=== PATIENT | female | born 1955 | race African-American/Black ===

== ENCOUNTER 2016-03-17 22:57 | Inpatient (IN) | payer MEDICAID, OTHER ==
[~2016-03-17] VITALS: Ht 152.4 cm; Wt 64.8 kg
[~2016-03-17 22:57] MED LIST: ALB2T PO; CARI250T8 PO; DIPH25CA66 PO; FOLI5CAP OR; FURO20TA3 PO; GABA-494 PO; HYDR-1421 OR; Metronidazole PO; POTA10SO11 GT
[2016-03-17] MEDS ORDERED: methylPREDNISolone SOD SUCC 125 MG/2 ML VL ONE (23:21)
[2016-03-17] MEDS ORDERED: ALBUTEROL SULF 2.5 MG/0.5ML(0.5%) NEB SOLN NEB ONE (23:30)
[2016-03-17] MEDS ORDERED: methylPREDNISolone SOD SUCC 125 MG/2 ML VL IV ONE (23:30)
[2016-03-17] MEDS ORDERED: IPRATROPIUM BROM 0.5 MG/2.5ML INH SOL NEB ONE (23:30)
[2016-03-17] MEDS ORDERED: FAMOTIDINE (10MG/ML) 2ML VL IV ONE (23:45)
[2016-03-17] MEDS ORDERED: SODIUM CHLORIDE 0.9% 1,000 ML IV ONE (23:45)
[2016-03-18] VITALS (9 sets, daily range): BP systolic 122–146; BP diastolic 65–91
[2016-03-18 00:13] LABS: DEFINITIVE VIEW TRANSMISSION; Hematocrit 40.2 % (36.0-46.0); Hemoglobin 12.8 g/dL (12.2-16.2); Mean Corpuscular Hemoglobin 30.4 pg (28.0-32.0); Mean Corpuscular Hgb Conc. 31.7 g/dL (32.0-36.0); Mean Corpuscular Volume 95.9 fL (80.0-100.0); Mean Platelet Volume 8.2 fL (7.4-10.4); Platelet Count (auto) 402 10^3/uL (140-450); Red Cell Distribution Width 13.1 % (11.6-16.0); SUSPECT VIEW TRANSMISSION; White Blood Cell 22.6 10^3/uL (4.4-10.8)
[2016-03-18 00:15] LABS: Metamyelocytes % 0; Myelocytes % 0; Promyelocytes % 0; Reactive Lymphocytes 0
[2016-03-18] MEDS ORDERED: MAGNESIUM SULFATE 1GM/100ML 100 ML IV ONE (00:30)
[2016-03-18] MEDS ORDERED: LORazepam 2MG/ML-1ML VIAL IV ONE ×2 (01:00)
[2016-03-18 01:04] LABS: Albumin 4.2 g/dL (3.4-5.0); BUN/Creatinine Ratio 13.6; Bilirubin, Total 0.7 mg/dL (0.2-1.0); Calcium 8.9 mg/dL (8.5-10.1); Potassium 3.9 mmol/L (3.5-5.1); Total Protein 8.3 g/dL (6.4-8.2)
[2016-03-18 01:05] LABS: Magnesium 2.5 mg/dL (1.6-2.6)
[2016-03-18] MEDS ORDERED: HYDROmorphone HCL 2 MG/ML VL IV ONE (01:30)
[2016-03-18] MEDS ORDERED: cefTRIAXone 1GM/50ML D5W 50 ML IV ONE (02:15)
[2016-03-18] MEDS ORDERED: NITROGLYCERIN 0.4 MG SL TAB SL PRN (04:00)
[2016-03-18] MEDS ORDERED: VANCOMYCIN 1GM/250ML D5W 250 ML IV ONE (04:00)
[2016-03-18] MEDS ORDERED: LACTULOSE 20Gm/30ML SOLN PO PRN (04:00)
[2016-03-18] MEDS ORDERED: MORPHINE SULF INJ 2 MG/ML SYRINGE 1ML IV PRN (04:00)
[2016-03-18] MEDS ORDERED: SODIUM CHLORIDE 0.9% 1,000 ML IV ONE ×2 (04:00)
[2016-03-18] MEDS ORDERED: VANCOMYCIN PER PHARMACY 0 MG IV SCH (04:00)
[2016-03-18 04:03] LABS: Anisocytosis Slight; Platelet Estimate Adequate
[2016-03-18] MEDS: ALBUTEROL SULF 2.5 MG/0.5ML(0.5%) NEB SOLN NEB SCH ×5 (05:25→22:41)
[2016-03-18] MEDS: IPRATROPIUM BROM 0.5 MG/2.5ML INH SOL NEB SCH ×5 (05:25→22:41)
[2016-03-18] MEDS: SODIUM CHLORIDE 0.9% 1,000 ML IV SCH ×2 (05:35→16:50)
[2016-03-18] MEDS: HYDROmorphone HCL 2 MG/ML VL IV PRN ×2 (07:52→12:12)
[2016-03-18] MEDS: ONDANSETRON HCL 4 MG/2 ML VIAL IV PRN ×2 (07:53→12:12)
[2016-03-18] MEDS: cefTRIAXone 1GM/50ML D5W 50 ML IV SCH (08:56)
[2016-03-18] MEDS ORDERED: ENOXAPARIN SOD 30 MG/0.3 ML SYRINGE SC SCH (10:00)
[2016-03-18] MEDS ORDERED: methylPREDNISolone SOD SUCC 125 MG/2 ML VL IV SCH (10:00)
[2016-03-18] MEDS: ENOXAPARIN SOD 40 MG/0.4 ML SYRINGE SC SCH (10:10)
[2016-03-18] MEDS ORDERED: INFLUENZA QUAD 2016-2017 0.5 ML SYRG IM ONE (15:15)
[2016-03-18] MEDS: AZITHROMYCIN 500MG/D5W 250ML 250 ML IV SCH (15:26)
[2016-03-18] MEDS: HYDROcodone-ACET 5/325MG TAB PO PRN ×2 (15:45→20:05)
[2016-03-18] MEDS ORDERED: VANCOMYCIN 1GM/250ML D5W 250 ML IV SCH (17:00)
[2016-03-18] MEDS: methylPREDNISolone SOD SUCC 40 MG/ML VL IV SCH ×2 (18:02→23:48)
[2016-03-18 20:44] LABS: Urine Bilirubin Negative (Negative); Urine Color Yellow (Yellow); Urine Glucose Normal (Normal); Urine Ketone Negative (Negative); Urine Nitrite Negative (Negative); Urine RBC 20 /hpf (0 - 4); Urine Squamous Epithelial Cell FEW /hpf (<5); Urine Urobilinogen Normal (Negative); Urine pH 5.5 (5.0-8.0)
[2016-03-18 20:46] LABS: Urine Blood 2+ /uL (Negative)
[2016-03-18] MEDS ORDERED: methylPREDNISolone SOD SUCC 40 MG/ML VL IV SCH (22:00)
[2016-03-19] MEDS: HYDROcodone-ACET 5/325MG TAB PO PRN ×5 (00:17→21:03)
[2016-03-19 04:46] VITALS: BP 113/66
[2016-03-19 05:52] LABS: Basophils # (auto) 0.1 uL; Basophils % (auto) 0.8 % (0.0-2.0); Eosinophils # (auto) 0 uL; Eosinophils % (auto) 0.1 % (0.0-7.0); Hematocrit 30.8 % (36.0-46.0); Lymphocytes # (auto) 1.7 uL; Lymphocytes % (auto) 16.8 % (10.0-50.0); Mean Corpuscular Hemoglobin 30.4 pg (28.0-32.0); Mean Corpuscular Hgb Conc. 32.5 g/dL (32.0-36.0); Mean Corpuscular Volume 93.7 fL (80.0-100.0); Mean Platelet Volume 8.2 fL (7.4-10.4); Monocytes # (auto) 0.4 uL; Monocytes % (auto) 4.4 % (0.0-12.0); Neutrophils # (auto) 7.7 uL; Neutrophils % (auto) 77.9 % (37.0-80.0); Platelet Count (auto) 361 10^3/uL (140-450); Red Cell Distribution Width 13.4 % (11.6-16.0); SUSPECT VIEW TRANSMISSION; White Blood Cell 9.8 10^3/uL (4.4-10.8)
[2016-03-19] MEDS: ALBUTEROL SULF 2.5 MG/0.5ML(0.5%) NEB SOLN NEB SCH ×5 (05:57→22:14)
[2016-03-19] MEDS: IPRATROPIUM BROM 0.5 MG/2.5ML INH SOL NEB SCH ×5 (05:58→22:14)
[2016-03-19 06:03] LABS: Potassium 4.3 mmol/L (3.5-5.1)
[2016-03-19] MEDS: methylPREDNISolone SOD SUCC 40 MG/ML VL IV SCH ×4 (06:03→23:23)
[2016-03-19 06:05] LABS: INR 1.04 (0.9-1.15); Prothrombin Time 10.7 sec (9.37-12.3)
[2016-03-19 06:09] LABS: Albumin 3.4 g/dL (3.4-5.0); BUN/Creatinine Ratio 16.4; Calcium 8.3 mg/dL (8.5-10.1)
[2016-03-19 06:21] LABS: Bilirubin, Total 0.2 mg/dL (0.2-1.0); Total Protein 6.5 g/dL (6.4-8.2)
[2016-03-19 07:58] VITALS: BP 131/73
[2016-03-19] MEDS: SODIUM CHLORIDE 0.9% 1,000 ML IV SCH ×2 (08:55→21:04)
[2016-03-19] MEDS: cefTRIAXone 1GM/50ML D5W 50 ML IV SCH (08:55)
[2016-03-19] MEDS: AZITHROMYCIN 500MG/D5W 250ML 250 ML IV SCH (09:24)
[2016-03-19] MEDS: ENOXAPARIN SOD 40 MG/0.4 ML SYRINGE SC SCH (09:24)
[2016-03-19 12:00] VITALS: BP 137/81
[2016-03-19 15:49] VITALS: BP 131/87
[2016-03-19 20:00] VITALS: BP 133/93
[2016-03-20] VITALS (7 sets, daily range): BP systolic 131–153; BP diastolic 77–97
[2016-03-20] MEDS: IPRATROPIUM BROM 0.5 MG/2.5ML INH SOL NEB SCH ×6 (02:15→22:25)
[2016-03-20] MEDS: ALBUTEROL SULF 2.5 MG/0.5ML(0.5%) NEB SOLN NEB SCH ×6 (02:15→22:25)
[2016-03-20] MEDS: HYDROcodone-ACET 5/325MG TAB PO PRN ×4 (02:23→20:01)
[2016-03-20 05:15] LABS: Basophils # (auto) 0 uL; Basophils % (auto) 0.4 % (0.0-2.0); Eosinophils # (auto) 0 uL; Eosinophils % (auto) 0.1 % (0.0-7.0); Hematocrit 31.8 % (36.0-46.0); Hemoglobin 10.3 g/dL (12.2-16.2); Lymphocytes # (auto) 1.5 uL; Lymphocytes % (auto) 14.6 % (10.0-50.0); Mean Corpuscular Hemoglobin 30.5 pg (28.0-32.0); Mean Corpuscular Hgb Conc. 32.5 g/dL (32.0-36.0); Mean Corpuscular Volume 93.8 fL (80.0-100.0); Mean Platelet Volume 8.2 fL (7.4-10.4); Monocytes # (auto) 0.8 uL; Monocytes % (auto) 8.1 % (0.0-12.0); Neutrophils # (auto) 7.8 uL; Neutrophils % (auto) 76.8 % (37.0-80.0); Platelet Count (auto) 352 10^3/uL (140-450); Red Cell Distribution Width 13.5 % (11.6-16.0); SUSPECT VIEW TRANSMISSION; White Blood Cell 10.2 10^3/uL (4.4-10.8)
[2016-03-20 05:32] LABS: INR 1.08 (0.9-1.15); Prothrombin Time 11.1 sec (9.37-12.3)
[2016-03-20] MEDS: methylPREDNISolone SOD SUCC 40 MG/ML VL IV SCH ×3 (05:33→17:14)
[2016-03-20 05:38] LABS: Calcium 8.6 mg/dL (8.5-10.1); Potassium 4.1 mmol/L (3.5-5.1)
[2016-03-20 05:47] LABS: BUN/Creatinine Ratio 17.7; Magnesium 2.6 mg/dL (1.6-2.6)
[2016-03-20 08:05] LABS: Platelet Estimate Adequate; RBC Morphology Normal
[2016-03-20] MEDS: cefTRIAXone 1GM/50ML D5W 50 ML IV SCH (08:38)
[2016-03-20] MEDS: SODIUM CHLORIDE 0.9% 1,000 ML IV SCH ×2 (09:34→12:10)
[2016-03-20] MEDS: AZITHROMYCIN 500MG/D5W 250ML 250 ML IV SCH (09:34)
[2016-03-20] MEDS: ENOXAPARIN SOD 40 MG/0.4 ML SYRINGE SC SCH (09:34)
[2016-03-20] MEDS: HYDROmorphone HCL 2 MG/ML VL IV PRN ×3 (10:04→22:04)
[2016-03-20] MEDS ORDERED: GABAPENTIN 300 MG CAP PO ONE (11:30)
[2016-03-20] MEDS: GABAPENTIN 300 MG CAP PO SCH ×2 (14:13→22:03)
[2016-03-21] MEDS: methylPREDNISolone SOD SUCC 40 MG/ML VL IV SCH ×4 (00:35→17:32)
[2016-03-21] MEDS: ALBUTEROL SULF 2.5 MG/0.5ML(0.5%) NEB SOLN NEB SCH ×6 (02:16→21:18)
[2016-03-21] MEDS: IPRATROPIUM BROM 0.5 MG/2.5ML INH SOL NEB SCH ×6 (02:16→21:18)
[2016-03-21] MEDS: HYDROmorphone HCL 2 MG/ML VL IV PRN ×5 (02:40→23:00)
[2016-03-21 06:03] VITALS: BP 136/80
[2016-03-21] MEDS: GABAPENTIN 300 MG CAP PO SCH ×3 (06:07→21:59)
[2016-03-21 07:03] LABS: Hematocrit 32.3 % (36.0-46.0); Hemoglobin 10.5 g/dL (12.2-16.2); Mean Corpuscular Hemoglobin 30.4 pg (28.0-32.0); Mean Corpuscular Hgb Conc. 32.4 g/dL (32.0-36.0); Mean Corpuscular Volume 93.9 fL (80.0-100.0); Mean Platelet Volume 8.3 fL (7.4-10.4); Platelet Count (auto) 371 10^3/uL (140-450); SUSPECT VIEW TRANSMISSION; White Blood Cell 11.4 10^3/uL (4.4-10.8)
[2016-03-21 07:16] LABS: Metamyelocytes % 0; Myelocytes % 0; Promyelocytes % 0; Reactive Lymphocytes 0
[2016-03-21 07:22] LABS: Albumin 3.6 g/dL (3.4-5.0); BUN/Creatinine Ratio 18.2; Bilirubin, Total 0.3 mg/dL (0.2-1.0); Calcium 8.5 mg/dL (8.5-10.1); Potassium 3.9 mmol/L (3.5-5.1); Total Protein 6.5 g/dL (6.4-8.2)
[2016-03-21 07:36] LABS: Platelet Estimate Adequate
[2016-03-21 07:56] VITALS: BP 129/85
[2016-03-21] MEDS: cefTRIAXone 1GM/50ML D5W 50 ML IV SCH (09:19)
[2016-03-21] MEDS ORDERED: ALBUTEROL SULF 2.5 MG/0.5ML(0.5%) NEB SOLN NEB PRN (09:30)
[2016-03-21] MEDS ORDERED: IPRATROPIUM BROM 0.5 MG/2.5ML INH SOL NEB PRN (09:30)
[2016-03-21] MEDS: AZITHROMYCIN 500MG/D5W 250ML 250 ML IV SCH (10:10)
[2016-03-21] MEDS: ENOXAPARIN SOD 40 MG/0.4 ML SYRINGE SC SCH (10:10)
[2016-03-21] MEDS: SODIUM CHLORIDE 0.9% 1,000 ML IV SCH ×2 (11:51→22:00)
[2016-03-21 13:46] VITALS: BP 120/70
[2016-03-21 17:06] VITALS: BP 132/90
[2016-03-21 22:00] VITALS: BP 148/92
[2016-03-22] MEDS: methylPREDNISolone SOD SUCC 40 MG/ML VL IV SCH ×4 (00:18→17:53)
[2016-03-22] MEDS: IPRATROPIUM BROM 0.5 MG/2.5ML INH SOL NEB SCH ×6 (02:19→22:15)
[2016-03-22] MEDS: ALBUTEROL SULF 2.5 MG/0.5ML(0.5%) NEB SOLN NEB SCH ×6 (02:19→22:15)
[2016-03-22] MEDS: HYDROmorphone HCL 2 MG/ML VL IV PRN ×5 (03:09→20:03)
[2016-03-22 05:00] VITALS: BP 153/103
[2016-03-22 05:23] LABS: Hematocrit 33.5 % (36.0-46.0); Hemoglobin 10.7 g/dL (12.2-16.2); Mean Corpuscular Hemoglobin 30.2 pg (28.0-32.0); Mean Corpuscular Hgb Conc. 31.9 g/dL (32.0-36.0); Mean Corpuscular Volume 94.7 fL (80.0-100.0); Mean Platelet Volume 8.3 fL (7.4-10.4); Platelet Count (auto) 352 10^3/uL (140-450); Red Cell Distribution Width 13.2 % (11.6-16.0); White Blood Cell 12.4 10^3/uL (4.4-10.8)
[2016-03-22] MEDS: GABAPENTIN 300 MG CAP PO SCH ×3 (05:28→21:26)
[2016-03-22 05:29] LABS: Metamyelocytes % 0; Myelocytes % 0; Promyelocytes % 0; Reactive Lymphocytes 0
[2016-03-22 05:38] LABS: Potassium 4.1 mmol/L (3.5-5.1)
[2016-03-22 05:43] LABS: Albumin 3.3 g/dL (3.4-5.0); BUN/Creatinine Ratio 15.2; Calcium 8.3 mg/dL (8.5-10.1)
[2016-03-22 05:51] LABS: Bilirubin, Total 0.4 mg/dL (0.2-1.0); Total Protein 6.5 g/dL (6.4-8.2)
[2016-03-22 06:14] LABS: Hypersegmented Neutrophils Present
[2016-03-22 06:15] LABS: Large Platelets FEW; Platelet Clumps FEW; Platelet Estimate Adequa
[2016-03-22 06:16] LABS: Schistocytes FEW; Stomatocytes Few
[2016-03-22] MEDS ORDERED: cloNIDine HCL 0.1 MG TAB PO PRN (08:45)
[2016-03-22 09:00] VITALS: BP 147/87
[2016-03-22] MEDS ORDERED: DEXTROSE (50%) 50ML SYRG IV PRN (09:00)
[2016-03-22] MEDS: cefTRIAXone 1GM/50ML D5W 50 ML IV SCH (09:04)
[2016-03-22] MEDS: ENOXAPARIN SOD 40 MG/0.4 ML SYRINGE SC SCH (09:49)
[2016-03-22] MEDS: AZITHROMYCIN 500MG/D5W 250ML 250 ML IV SCH (09:49)
[2016-03-22] MEDS: ACCU-CHEK COMFORT CURVE STRIP VI SCH ×3 (11:30→21:26)
[2016-03-22] MEDS: InsuLIN REG 1unit/0.01ml Soln (100units/ml) SC SCH ×3 (11:34→22:10)
[2016-03-22 13:00] VITALS: BP 119/77
[2016-03-22] MEDS: BOOST PLUS 8 ounce PO SCH ×2 (13:49→18:27)
[2016-03-22] MEDS: SODIUM CHLORIDE 0.9% 1,000 ML IV SCH (14:31)
[2016-03-22 17:00] VITALS: BP 147/104
[2016-03-22 22:02] VITALS: BP 124/71
[2016-03-23] MEDS: methylPREDNISolone SOD SUCC 40 MG/ML VL IV SCH ×3 (00:09→12:23)
[2016-03-23] MEDS: HYDROmorphone HCL 2 MG/ML VL IV PRN ×4 (00:10→12:14)
[2016-03-23] MEDS: IPRATROPIUM BROM 0.5 MG/2.5ML INH SOL NEB SCH ×3 (02:49→10:18)
[2016-03-23] MEDS: ALBUTEROL SULF 2.5 MG/0.5ML(0.5%) NEB SOLN NEB SCH ×3 (02:49→10:18)
[2016-03-23] MEDS: SODIUM CHLORIDE 0.9% 1,000 ML IV SCH (03:34)
[2016-03-23 05:05] VITALS: BP 158/89
[2016-03-23] MEDS: GABAPENTIN 300 MG CAP PO SCH (05:44)
[2016-03-23 06:19] LABS: Hematocrit 34.8 % (36.0-46.0); Hemoglobin 11.2 g/dL (12.2-16.2); Mean Corpuscular Hgb Conc. 32.1 g/dL (32.0-36.0); Mean Corpuscular Volume 93.5 fL (80.0-100.0); Mean Platelet Volume 8.5 fL (7.4-10.4); Platelet Count (auto) 368 10^3/uL (140-450); Red Cell Distribution Width 13.6 % (11.6-16.0); White Blood Cell 14.8 10^3/uL (4.4-10.8)
[2016-03-23] MEDS: ACCU-CHEK COMFORT CURVE STRIP VI SCH ×2 (06:28→11:20)
[2016-03-23 06:34] LABS: Metamyelocytes % 0; Myelocytes % 0; Promyelocytes % 0; Reactive Lymphocytes 0
[2016-03-23] MEDS: InsuLIN REG 1unit/0.01ml Soln (100units/ml) SC SCH ×2 (06:50→11:24)
[2016-03-23 07:00] LABS: Hypersegmented Neutrophils Present; Platelet Estimate Adequate; Stomatocytes Few
[2016-03-23 07:03] LABS: Albumin 3.6 g/dL (3.4-5.0); BUN/Creatinine Ratio 17.2; Bilirubin, Total 0.5 mg/dL (0.2-1.0); Calcium 8.7 mg/dL (8.5-10.1); Potassium 3.9 mmol/L (3.5-5.1); Total Protein 6.6 g/dL (6.4-8.2)
[2016-03-23] MEDS: BOOST PLUS 8 ounce PO SCH ×2 (08:21→12:14)
[2016-03-23] MEDS: cefTRIAXone 1GM/50ML D5W 50 ML IV SCH (08:35)
[2016-03-23 09:00] VITALS: BP 138/90
[2016-03-23] MEDS: ENOXAPARIN SOD 40 MG/0.4 ML SYRINGE SC SCH (09:42)
[2016-03-23] MEDS: AZITHROMYCIN 500MG/D5W 250ML 250 ML IV SCH (09:43)
[2016-03-23] MEDS ORDERED: FUROSEMIDE 20 MG/2 ML VIAL IV ONE (10:45)
[2016-03-23] MEDS ORDERED: POTASSIUM CHL 20 Meq TABLET PO ONE (10:45)
[2016-03-23 11:35] VITALS: BP 138/90
== END 2016-03-23 13:36 | disposition home or self-care (01) | DRG 720 ==
LOC: ER 22:57 → EDBD 22:57 → TELE 22:58 → EDUNIT# 22:58 → DOU IN ICU 03-18 13:45 → TELE-CENTR 03-20 20:38
PROVIDERS: ADMIT Family Medicine; ATTEND Family Medicine
PROC: 5A09357 Assistance with Respiratory Ventilation, Less than 24 Consecutive Hours, Continuous Positive Airway Pressure (ICD-10-PCS; principal; 2016-03-18)
DX: A41.9 Sepsis, unspecified organism (principal); D57.00 Hb-SS disease with crisis, unspecified; J96.10 Chronic respiratory failure, unspecified whether with hypoxia or hypercapnia; J18.9 Pneumonia, unspecified organism; I11.0 Hypertensive heart disease with heart failure; J44.0 Chronic obstructive pulmonary disease with (acute) lower respiratory infection; I50.32 Chronic diastolic (congestive) heart failure; J45.901 Unspecified asthma with (acute) exacerbation; J44.1 Chronic obstructive pulmonary disease with (acute) exacerbation; J20.9 Acute bronchitis, unspecified; N39.0 Urinary tract infection, site not specified; R65.20 Severe sepsis without septic shock; Z23 Encounter for immunization; Z86.711 Personal history of pulmonary embolism
CPT/HCPCS: 36415; 36600; 71010; 80048; 80053; 81001; 82805; 82962; 83036; 83605; 83735; 85007; 85025; 85027; 85045; 85049; 85610; 87040; 87070; 87081; 87086; 87400; 87880; 93005; 93306; 94640; 94660; 96361; 96365; 96366; 96367; 96375; J0696; J1815; J2405; J3490

== ENCOUNTER 2016-07-22 01:45 | Emergency (ER) | payer MEDICAID ==
[~2016-07-22] VITALS: Ht 152.4 cm; Wt 68.0 kg
[2016-07-22 02:23] VITALS: BP 160/92
[2016-07-22] MEDS ORDERED: LIDOCAINE 1% HCL (LOCAL ANESTH.) INJ 20ML MDV ONE (02:58)
[2016-07-22] MEDS ORDERED: LIDOCAINE 1% HCL (LOCAL ANESTH.) INJ 20ML MDV IJ ONE (03:45)
== END 2016-07-22 03:43 | disposition home or self-care (01) ==
LOC: ER 01:46
DX: L02.01 Cutaneous abscess of face (principal); J44.9 Chronic obstructive pulmonary disease, unspecified; Z88.6 Allergy status to analgesic agent; Z88.8 Allergy status to other drugs, medicaments and biological substances; F17.210 Nicotine dependence, cigarettes, uncomplicated
CPT/HCPCS: 10060; 87077; 87186; 87205; 99284; J2001